=== PATIENT | female | born 1990 | race Caucasian/White ===

== ENCOUNTER 2025-06-14 01:20 | Observation (INO) | payer OTHER, SELFPAY ==
[2025-06-14 02:03] LABS: Bacteria/HPF None Seen HPF (None Seen); CAUTI Indications for Culture Pelvic or flank pain; Glucose, Urine (Dipstick) Normal (Negative); Leukocyte 75 Leu/uL (Negative); Protein, Urine (Dipstick) Negative (Neg-Trace); RBC/HPF 0-3 HPF (0-3); Specific Gravity, Urine 1.023 (1.002-1.036)
[2025-06-14 02:05] LABS: Urine Culture Reflex No No
[2025-06-14 03:06] LABS: BHCG - Serum Negative (NEGATIVE); Pregs Control Background? CLEAR/WHITE (CLR/WHITE); Pregs Control Bar Appear? YES (CONTROL BAR)
[2025-06-14 03:07] LABS: #Basophils Less than 0.03 10x3/uL (0.0-0.2); #Eosinophils 0.17 10x3/uL (0.0-0.7); #Monocytes 0.46 10x3/uL (0.11-0.59); #Neutrophils 5.65 10x3/uL (1.40-6.50); %Basophils 0.3 % (0.0-1.0); %Eosinophils 2.2 % (0.0-10.0); %Lymphocytes 17.6 % (21.0-51.0); %Monocytes 6.0 % (0.0-10.0); %Neutrophils 73.6 % (42.0-75.0); Hematocrit 39.5 % (36.0-47.0); Hemoglobin 13.2 g/dL (12.0-16.0); Mean Corpuscular Hemoglobin 29.2 pg (27.0-31.0); Mean Corpuscular Volume 87.4 fL (78.0-98.0); Platelet Count 137 10x3/uL (130-400); Red Blood Cell (RBC) Count 4.52 mill/uL (4.20-5.40); White Blood Cell (WBC) Count 7.67 10x3/uL (4.8-10.8)
[2025-06-14 03:17] LABS: ALT (SGPT) 35 U/L (Less than 34); AST (SGOT) 42 U/L (11-34); Albumin 3.9 g/dL (3.1-4.5); Alkaline Phosphatase 49 U/L (40-110); Anion Gap 12 mmol/L (10-20); BUN (Urea Nitrogen) 25 mg/dL (7.0-18.7); Bilirubin, Total 0.3 mg/dL (0.3-1.2); Calc. Creatinine Clearance 0 mL/min (70-130); Calcium 8.9 mg/dL (7.8-10.44); Carbon Dioxide 26 mmol/L (22-29); Chloride 104 mmol/L (98-107); Globulin 2.3 g/dL (2.4-3.5); Glucose 106 mg/dL (70-105); Lipase 22 U/L (8-78); Potassium 3.6 mmol/L (3.5-5.1); Sodium 138 mmol/L (136-145)
[2025-06-14] MEDS ORDERED: Glucagon 1 MG/ML KIT IM PRN (07:48)
[2025-06-14] MEDS ORDERED: Dextrose 50% Abboject 50 ML SYRINGE SLOW IVP PRN (07:48)
[2025-06-14] MEDS ORDERED: Ondansetron PF 4 MG/2 ML Vial IVP PRN (07:48)
[2025-06-14] MEDS ORDERED: Acetaminophen 325 MG TAB PO PRN (07:48)
[2025-06-14 09:08] VITALS: BMI 27.3
[2025-06-14] MEDS ORDERED: Rocuronium Bromide 10 MG/ML (10ML VIAL) ONE (09:17)
[2025-06-14] MEDS ORDERED: Ondansetron PF 4 MG/2 ML Vial ONE (09:17)
[2025-06-14] MEDS ORDERED: SUGAMMADEX SODIUM 200 MG/2 ML VIAL ONE (09:17)
[2025-06-14] MEDS ORDERED: fentaNYL PF 100 MCG/2 ML SYRINGE ONE ×2 (09:17→11:01)
[2025-06-14] MEDS ORDERED: Lidocaine 1% PF 5 ML VIAL ONE (09:17)
[2025-06-14] MEDS ORDERED: PROPOFOL 20 ML ONE (09:17)
[2025-06-14] MEDS ORDERED: Iopamidol 370 76% 100 ML VIAL ONE (11:53)
[2025-06-14 20:16] VITALS: BP 107/63; TEMP 97.8
== END 2025-06-14 19:20 | disposition home or self-care (01) ==
LOC: ERS 01:20 → SURG B 07:52
PROVIDERS: ADMIT Surgery; ATTEND Surgery
PROC: 0FT44ZZ Resection of Gallbladder, Percutaneous Endoscopic Approach (ICD-10-PCS; principal; 2025-06-14)
DX: K80.12 Calculus of gallbladder with acute and chronic cholecystitis without obstruction (principal); E03.9 Hypothyroidism, unspecified; Z87.59 Personal history of other complications of pregnancy, childbirth and the puerperium; Z79.890 Hormone replacement therapy
CPT/HCPCS: 47562; 74177; 76705; 80053; 81001; 83690; 84703; 85025; 96365; 99285; C1713; G0378 ×2; J1100; J2250; J2405; J2543 ×2; J2704; J3010; J7030; Q9967; S2900; 88304